=== PATIENT | male | born 1945 | race Caucasian/White ===

== ENCOUNTER → 2021-12-10 15:23 | Outpatient (CLI) | payer MEDICARE, SELFPAY | PROVIDERS: Visit Provider Physician Assistant | DX: T14.8XXA Other injury of unspecified body region, initial encounter (principal); W54.0XXA Bitten by dog, initial encounter | CPT/HCPCS: 87070; 87075; 87077; 87186; 87205 ==

== ENCOUNTER → 2022-09-11 13:07 | Outpatient (ROUT) | payer OTHER, SELFPAY | PROVIDERS: Visit Provider Dermatology | DX: Z48.02 Encounter for removal of sutures (principal) | CPT/HCPCS: 87070; 87205 ==

== ENCOUNTER → 2023-11-09 12:53 | Outpatient (CLI) | payer OTHER, SELFPAY ==
--- NOTE | 2023-11-09 12:55 | DI.US.S_ITS ---
PROCEDURE: US ABDOMEN COMPLETE INDICATIONS: UPPER ABDOMINAL PAIN TECHNIQUE: Real-time scanning was performed of the abdominal and retroperitoneal organs, with image documentation. COMPARISON: None. FINDINGS: Liver: Liver measures 14 cm. Overall appearance is unremarkable. Gallbladder: Unremarkable Biliary ducts: Intrahepatic bile ducts are non-dilated. Extrahepatic bile duct caliber measures 1 mm. Normal is 6-7 mm or less in diameter, or 10 mm or less post-cholecystectomy. Pancreas: Visualized portions of the pancreas are sonographically normal. Spleen: Spleen is normal in size and homogeneous in echotexture. Kidneys: Kidneys are normal in size and echotexture. Right kidney measures 11 cm long; left kidney measures 9 cm long. No solid renal mass or hydronephrosis. Clustered cysts with septations measuring 6 x 6.1 cm in aggregate in the right kidney. Aorta: Not well seen due to bowel gas Iliacs: Not well seen due to bowel gas IVC: Patent Miscellaneous: No free abdominal fluid. IMPRESSION: Septated right renal cyst measuring up to 6.1 cm usually a benign/incidental findings, but consider renal protocol CT or MRI to further evaluate for thickened soft tissue or nodules that could be occult on ultrasound. No acute sonographic abnormality. Limited evaluation due to bowel gas. Dictated by: Russ Schwartz M.D. on 11/09/2023 at 15:55 Approved by: Russ Schwartz M.D. on 11/09/2023 at 15:57
== END ==
PROVIDERS: Referring Provider Nurse Practitioner Family; Visit Provider Nurse Practitioner Family
DX: N28.1 Cyst of kidney, acquired (principal); R10.10 Upper abdominal pain, unspecified
CPT/HCPCS: 76700

== ENCOUNTER 2023-12-02 15:33 | Emergency (ER) | payer OTHER, MEDICARE, SELFPAY ==
[2023-12-02] VITALS (11 sets, daily range): BP systolic 143–170; BP diastolic 78–104; PULSE 43–52; RESP 16–26; TEMP 36.9; O2SAT 98–99; BMI 25.1
--- NOTE | 2023-12-02 18:10 | EKG_ITS ---
[address] [address] Test Date: 2023-12-02 Pat Name: Evans Aguilar Department: Room: Gender: Male Certified Nuclear Medicine Technologist: CHAIM : 1945 Requested By: Order Number: [id number] Reading MD: Saúl Alvarez Measurements Intervals [place] Rate: 43 P: 20 LA: 182 QRS: -40 QRSD: 92 T: 32 QT: 448 QTc: 378 Interpretive Statements Marked sinus bradycardia Left axis deviation Anterior infarct , age undetermined Electronically Signed On 12-08-2023 8:59:05 PDT by Saúl Alvarez
--- NOTE | 2023-12-02 18:10 | ED.ABDPAIN ---
HPI - Abdominal Pain General Chief Complaint: Abdominal Pain Stated Complaint: digestive issues Time Seen by Provider: 12/02/23 16:16 Source: patient Mode of arrival: Family Vehicle History of Present Illness HPI narrative: Patient is a 78-year-old male without significant past medical history presenting today with ongoing abdominal and stool issues. He reports that for the last 2 years stools have gotten very thin and small he does not feel like he is evacuating completely. He denies any nausea or vomiting no weight loss. He feels bloated. No night sweats. No chest pain or palpitations. Reports his heart rate is always in the 40 range. Today he is here says he just does not feel quite right. He has an appointment with GI doctor in December. He has had an outpatient renal ultrasound last month which does show a right renal cyst 6.1 cm. He had a colonoscopy he says about 3 months ago and according to him the report is that it was tortuous but otherwise clean. Related Data Home Medications Medication Instructions Recorded Confirmed Red Yeast PO 12/10/21 12/10/21 Vitamin D PO 12/10/21 12/10/21 Allergies Allergy/AdvReac Type Severity Reaction Status Date / Time No Known Drug Allergies Allergy Unverified 12/10/21 15:28 Patient History Social History Smoking Status: Never smoker Smoking Status: Never smoker Exam Initial Vital Signs Initial Vital Signs: Vital Signs Temperature 98.5 F 12/02/23 15:51 Pulse Rate 52 L 12/02/23 15:51 Respiratory Rate 16 12/02/23 15:51 Blood Pressure 170/104 H 12/02/23 15:51 Pulse Oximetry 99 12/02/23 15:51 Oxygen Delivery Method Room Air 12/02/23 15:51 GENERAL: Alert well-appearing 78-year-old male and in no acute distress. HEENT: Head atraumatic,EOMI, pupils reactive, face symmetric, moist mucous membranes CARDIOVASCULAR: Regular rate and rhythm without murmurs, rubs or gallops. RESPIRATORY: Breath sounds equal bilaterally, no wheezes rales or rhonchi. ABDOMEN: Soft, nontender. Normoactive bowel sounds all 4 quadrants. No guarding or rebound. EXTREMITIES: Normal range of motion, no clubbing or edema. Neurovascularly intact NEUROLOGICAL: Alert and oriented x4.Normal gait and speech. Cranial nerves II through XII grossly intact. SKIN: Warm, dry, no laceration, no petechiae, no rashes or lesions. Course Orders Ordered: ED Orders 12/02/23 18:19 CT abdomen pelvis w con Stat 12/02/23 19:15 Complete Blood Count AUTO DIFF Stat Comprehensive Metabolic Panel Stat Lipase Stat Vital Signs Vital signs: Vital Signs - 8 hr 12/02/23 19:30 12/02/23 19:30 12/02/23 20:00 Pulse Rate 44 L 44 L Respiratory Rate 21 26 H Blood Pressure 143/81 H Pulse Oximetry 99 99 Oxygen Delivery Method 12/02/23 20:30 12/02/23 21:00 12/02/23 21:22 Pulse Rate 49 L 48 L Respiratory Rate 18 18 Blood Pressure 150/79 H Pulse Oximetry 99 98 Oxygen Delivery Method 12/02/23 21:22 Pulse Rate 46 L Respiratory Rate 17 Blood Pressure Pulse Oximetry 98 Oxygen Delivery Method Room Air MDM - Abdominal Pain Lab Data 12/02/23 19:15 12/02/23 19:15 Labs: Lab Results 12/02/23 Range/Units 19:15 WBC 6.4 (4.5-11.0) X10^3/uL RBC 4.39 L (4.5-5.9) X10^6/uL Hgb 13.7 (13.5-17.5) g/dL Hct 41.4 (41-53) % MCV 94.2 (80-100) fL MCH 31.2 (26-34) PG MCHC 33.1 (30-36) % RDW 14.4 (11.6-14.8) % Plt Count 196 (150-400) X10^3/uL Neut % (Auto) 47.8 L (50-75) % Lymph % (Auto) 44.7 H (25-40) % [place] % (Auto) 6.4 (3-14) % Eos % (Auto) 0.5 L (2-4) % Baso % (Auto) 0.6 (0-2) % Neut # (Auto) 3100 (0674-6676) /uL Lymph # (Auto) 2900 (1386-7325) /uL Shannon # (Auto) 400 (0-900) /uL Eos # (Auto) 0 (0-450) /uL Baso # (Auto) 0 (0-100) /uL Sodium 137 (137-145) mmol/L Potassium 4.2 (3.4-5.1) mmol/L Chloride 106 (98-107) mmol/L Carbon Dioxide 27 (22-32) mmol/L BUN 12 (9-20) mg/dL Creatinine 0.70 (0.66-1.25) mg/dL Estimated GFR > 60 (>60) mL/min BUN/Creatinine Ratio 17.1 (6-22) Glucose 81 (80-110) mg/dL Calcium 9.3 (8.4-10.2) mg/dL Total Bilirubin 0.8 (0.2-1.3) mg/dL AST 32 (17-59) IU/L ALT 21 (<50) IU/L Alkaline Phosphatase 63 (38-126) U/L Total Protein 7.2 (6.3-8.2) g/dL Albumin 4.4 (3.5-5.0) g/dL Globulin 2.8 (1.7-4.1) g/dL Albumin/Globulin Ratio 1.6 (1.0-2.8) Lipase 69 (23-300) U/L Point of care testing: Urine Dip Bedside Urine Glucose Negative Bedside Urine Bilirubin - Negative Bedside Urine Ketone - Negative Urine Specific [place] 1.020 Bedside Urine Occult Blood - Negative Bedside Urine pH 6.0 Bedside Urine Protein - Negative Bedside Urine Urobilinogen - Negative Bedside Urine Nitrite - Negative Bedside Urine Leukocytes - Negative Esterase Imaging Data CT scan - abdomen/pelvis: Radiologist's Impression: PROCEDURE: CT ABDOMEN PELVIS W CON INDICATIONS: ongoing abdominal pain TECHNIQUE: After the administration of intravenous contrast, axial sections acquired from the lung bases to the pubic symphysis. Coronal and sagittal reformats were performed. For radiation dose reduction, the following was used: automated exposure control, adjustment of mA and/or kV according to patient size. COMPARISON: [facility], , MR PELVIS PROSTATE SCREENING PROTOCOL, 11/20/2023, 10:53. FINDINGS: Image quality: Diagnostic Lower chest: bibasilar atelectasis. Small Bochdalek's hernias. Heart size is at the upper limit of normal Liver: No solid mass Gallbladder and biliary system: Unremarkable, nondilated Pancreas: No ductal dilation Spleen: Nonenlarged Adrenals: No discrete nodules Kidneys: Septated right renal cyst is seen. Possible focal wall thickening at the superior edge measuring 5 mm. No hydronephrosis Vessels and lymph nodes: No abdominal aortic aneurysm. No pathologic lymph nodes by size criteria. The aorta is tortuous Bowel and peritoneum: No evidence of small bowel obstruction. Moderate fecal loading. No abscess. Small amount of pelvic free fluid is present Body wall: Unremarkable Pelvis: Bladder is unremarkable. Prostate is better evaluated on recent MRI Bones: There are degenerative changes. No acute or suspicious finding. IMPRESSION: There is moderate fecal loading. No evidence of bowel obstruction or abscess. There is a small amount of nonspecific pelvic free fluid. The prostate is enlarged and better evaluated on recent MRI. Mildly complex right renal cyst, with possible focal wall thickening superiorly, consider nonurgent renal protocol CT or MRI to further evaluate Dictated by: Russ Schwartz M.D. on 12/02/2023 at 20:43 Approved by: Russ Schwartz M.D. on 12/02/2023 at 20:49 ECG Data Attestation: I personally reviewed and interpreted this ECG as follows: Prior ECG tracings: not available for review Interpretation: Normal sinus rhythm rate 43 MT interval 182 QRS 92 QTC 378 no ischemia no AV mckay blocks MDM Narrative Medical decision making narrative: Patient is 78-year-old male presents today with ongoing abdominal and bowel issues. They have been ongoing for the last 2 years it is unclear exactly why it is worse today. His abdomen is soft and nontender. It sounds as though he has had a colonoscopy looks he had abdominal ultrasound in October 2023. His vitals are stable he is bradycardic who states that he is always bradycardic and not currently on medication for it. Blood work is reviewed and clinically nonsignificant Abdominal CT reviewed shows constipation with a right renal cyst consistent with ultrasound last month At this time no evidence of mass or other critical abdominal abnormality. Discussion with patient about results. He has a GI follow-up in December. At this time no further workup or treatment. Discharge Plan Departure Patient Disposition: Home Clinical Impression: Renal cyst, Constipation Instructions: DI for Constipation Activity Restrictions/Additional Instructions: *You have been diagnosed with constipation right renal cyst *What to do: At this time some stool no other abnormality no masses you have renal cyst *Continue to take medications as directed *Follow up with your primary care provider in 2-3 days or call [phone] *Return to ER if you should have increasing pain dizziness lightheadedness nausea vomiting or any new, worsening or concerning symptoms Prescriptions: No Action Vitamin D PO Red Yeast PO Referrals: Augustine Godoy ARNP [Primary Care Provider] - Stand Alone Forms: Patient Portal/API
--- NOTE | 2023-12-02 18:19 | DI.CT.S_ITS ---
PROCEDURE: CT ABDOMEN PELVIS W CON INDICATIONS: ongoing abdominal pain TECHNIQUE: After the administration of intravenous contrast, axial sections acquired from the lung bases to the pubic symphysis. Coronal and sagittal reformats were performed. For radiation dose reduction, the following was used: automated exposure control, adjustment of mA and/or kV according to patient size. COMPARISON: [facility], MR, MR PELVIS PROSTATE SCREENING PROTOCOL, 11/20/2023, 10:53. FINDINGS: Image quality: Diagnostic Lower chest: bibasilar atelectasis. Small Bochdalek's hernias. Heart size is at the upper limit of normal Liver: No solid mass Gallbladder and biliary system: Unremarkable, nondilated Pancreas: No ductal dilation Spleen: Nonenlarged Adrenals: No discrete nodules Kidneys: Septated right renal cyst is seen. Possible focal wall thickening at the superior edge measuring 5 mm. No hydronephrosis Vessels and lymph nodes: No abdominal aortic aneurysm. No pathologic lymph nodes by size criteria. The aorta is tortuous Bowel and peritoneum: No evidence of small bowel obstruction. Moderate fecal loading. No abscess. Small amount of pelvic free fluid is present Body wall: Unremarkable Pelvis: Bladder is unremarkable. Prostate is better evaluated on recent MRI Bones: There are degenerative changes. No acute or suspicious finding. IMPRESSION: There is moderate fecal loading. No evidence of bowel obstruction or abscess. There is a small amount of nonspecific pelvic free fluid. The prostate is enlarged and better evaluated on recent MRI. Mildly complex right renal cyst, with possible focal wall thickening superiorly, consider nonurgent renal protocol CT or MRI to further evaluate Dictated by: Russ Schwartz M.D. on 12/02/2023 at 20:43 Approved by: Russ Schwartz M.D. on 12/02/2023 at 20:49
[2023-12-02 19:27] LABS: Add Manual Diff / Slide Review NO; Basophils Absolute Auto 0 /uL (0-100); Basophils Percent Auto 0.6 % (0-2); Eosinophils Absolute Auto 0 /uL (0-450); Eosinophils Percent Auto 0.5 % (2-4); Hematocrit 41.4 % (41-53); Hemoglobin 13.7 g/dL (13.5-17.5); Lymphocytes Absolute Auto 2900 /uL (1100-4500); Lymphocytes Percent Auto 44.7 % (25-40); Mean Corpuscular HGB Conc 33.1 % (30-36); Mean Corpuscular Hemoglobin 31.2 PG (26-34); Mean Corpuscular Volume 94.2 fL (80-100); Monocytes Absolute Auto 400 /uL (0-900); Monocytes Percent Auto 6.4 % (3-14); Neutrophils Absolute Auto 3100 /uL (1500-7000); Neutrophils Percent Auto 47.8 % (50-75); Platelet Count 196 X10^3/uL (150-400); Red Blood Cell Count 4.39 X10^6/uL (4.5-5.9); Red Cell Distribution Width 14.4 % (11.6-14.8); White Blood Cell Count 6.4 X10^3/uL (4.5-11.0)
[2023-12-02 19:34] LABS: Alanine Aminotransferase 21 IU/L (<50); Albumin 4.4 g/dL (3.5-5.0); Albumin Globulin Ratio 1.6 (1.0-2.8); Alkaline Phosphatase 63 U/L (38-126); Aspartate Aminotransferase 32 IU/L (17-59); BUN Creatinine Ratio 17.1 (6-22); Bilirubin Total 0.8 mg/dL (0.2-1.3); Blood Urea Nitrogen 12 mg/dL (9-20); Calcium 9.3 mg/dL (8.4-10.2); Carbon Dioxide 27 mmol/L (22-32); Chloride 106 mmol/L (98-107); Estimated Glomerular Filt Rate > 60 mL/min (>60); Globulin 2.8 g/dL (1.7-4.1); Glucose 81 mg/dL (80-110); HEMOLYSIS 25 (0-50); Lipase 69 U/L (23-300); Potassium 4.2 mmol/L (3.4-5.1); Sodium 137 mmol/L (137-145); Total Protein 7.2 g/dL (6.3-8.2)
== END 2023-12-02 21:34 | disposition home or self-care (01) ==
PROVIDERS: Emergency Provider Emergency Medicine; PCP Nurse Practitioner Family
DX: N28.1 Cyst of kidney, acquired (principal); K59.00 Constipation, unspecified
CPT/HCPCS: 74177; 80053; 81003; 83690; 85025; 93005; 99283; 99284; Q9967